=== PATIENT | female | born 1985 | race Hispanic/Latino ===

== ENCOUNTER 2016-07-26 19:55 | Emergency (ER) | payer OTHER ==
[2016-07-26 20:05] VITALS: BP 105/58; PULSE 75; RESP 16; TEMP 98.1; O2SAT 99
[2016-07-26 20:06] VITALS: BMI 24.1
[2016-07-26] MEDS ORDERED: Lidocaine 1% Inj (20ml) ONE (20:22)
--- NOTE | 2016-07-26 20:23 | ED PDOC ---
HPI: Skin/Bite Injury Time Seen by Provider: 07/26/16 20:08 Chief Complaint (Nursing): Abnormal Skin Integrity Chief Complaint (Provider): finger laceration History Per: Patient History/Exam Limitations: no limitations Onset/Duration Of Symptoms: Mins (prior to arrival ) Additional Complaint(s): Laurita Kraft is a 30 year old female, with no previous medical history, who presents to the ED for the evaluation of laceration she sustained to her left thumb while using a mandolin just prior to arrival. Patient is right hand dominant and up to date with tetanus vaccination. She has mild pain to affected area with no asssociated numbness or tingling. PMD: none provided Past Medical History Reviewed: Historical Data, Nursing Documentation, Vital Signs Vital Signs: Last Vital Signs Temp 98.1 F 07/26/16 20:04 Pulse 75 07/26/16 20:04 Resp 16 07/26/16 20:04 BP 105/58 L 07/26/16 20:04 Pulse Ox 99 07/26/16 21:07 - Medical History PMH: Asthma - Family History Family History: States: No Known Family Hx - Living Arrangements Living Arrangements: With Family - Social History Current smoker - smoking cessation education provided: No Alcohol: None Drugs: Denies - Immunization History Hx Tetanus Toxoid Vaccination: Yes - Allergies Allergies/Adverse Reactions: Allergies Allergy/AdvReac Type Severity Reaction Status Date / Time No Known Allergies Allergy Verified 07/26/16 20:03 Review of Systems ROS Statement: Except As Marked, All Systems Reviewed And Found Negative Musculoskeletal: Positive for: Hand Pain (left thumb laceration) Physical Exam - Reviewed Nursing Documentation Reviewed: Yes Vital Signs Reviewed: Yes - Physical Exam Appears: Positive for: Well, Non-toxic, No Acute Distress Skin: Negative for: Rash Eye Exam: Positive for: Normal appearance Respiratory: Negative for: Respiratory Distress Extremity: Positive for: Normal ROM, Capillary Refill (< 2 seconds ), Other (1 cm flap laceration to the palmar aspect of the left thumb, mild active bleeding) . Negative for: Swelling Neurologic/Psych: Positive for: Alert, Oriented - ECG O2 Sat by Pulse Oximetry: 99 (RA) Pulse Ox Interpretation: Normal Medical Decision Making Medical Decision Making: Initial Impression: Flap laceration left thumb Initial Plan: * laceration repair - patient agrees to repair by JOHN Bauer See procedure note. Patient given wound care instructions. Scribe Attestation: Documented by Maya Soni, acting as a scribe for Elaine Bauer PA-C. Provider Scribe Attestation: All medical record entries made by the Scribe were at my direction and personally dictated by me. I have reviewed the chart and agree that the record accurately reflects my personal performance of the history, physical exam, medical decision making, and the department course for this patient. I have also personally directed, reviewed, and agree with the discharge instructions and disposition. Disposition - Clinical Impression Clinical Impression: Finger laceration - Patient ED Disposition Is Patient to be Admitted: No Counseled Patient/Family Regarding: Diagnosis, Need For Followup - Disposition Referrals: [facility] [Outside] Disposition: Routine/Home Disposition Time: 21:15 Condition: STABLE Additional Instructions: Keep wound clean and dry. Tylenol or Advil for pain as needed. Wound check 2-3 days. Suture removal 10-14 days. Instructions: Finger Laceration (ED), Care For Your Stitches (ED) Laceration - Laceration Repair left thumb Wound Length (In cm): 1 Description Of Wound: Irregular (flap) Wound Cleansed With: Betadine Anesthesia: Lidocaine 1% Wound Examination: Irrigated With Saline Wound Debridement/Revision: Wound Margins Revised (wound flap aligned and wound margins revised ) Wound Closure: Suture (5-0 nylon ) Suture Technique And Material Used: Interrupted (4 simple interrupted sutures) Wound Complexity: Simple
== END 2016-07-26 22:00 | disposition home or self-care (01) ==
LOC: H.ER 19:55
DX: S61.012A Laceration without foreign body of left thumb without damage to nail, initial encounter (principal); W26.8XXA Contact with other sharp object(s), not elsewhere classified, initial encounter; Y92.89 Other specified places as the place of occurrence of the external cause; J45.909 Unspecified asthma, uncomplicated